=== PATIENT | male | born 1990 | race Caucasian/White ===

== ENCOUNTER 2021-11-16 13:36 | Outpatient (CLI) | payer OTHER ==
[2021-11-16 14:29] VITALS: BP 128/70
--- NOTE | 2021-11-16 14:29 | SLEEP CARE CONSULTATION ---
Information from patient questionnaire entered by Sheri Kothari MA. I have reviewed and concur with the information entered by Sheri Kothari MA. This document represents the service I personally performed and the decisions made by , Elisa Jeffries ARNP. History of Present Illness Service Date and Time: 11/16/2021 1336 Reason for Visit: New patient (ONSET 08/2018, NO PRIORS,) Chief Complaint: reports: Unrefreshed sleep, Snoring, Excessive daytime sleepin ess, Fatigue, Other Date of Onset: YEARS Usual bedtime: 930 PM Time it takes to fall asleep: 10 MINUTES Snores at night: Yes Observed to quit breathing while asleep: No Sleeps alone due to snoring: No Number of times waking at night: 0 Reasons for waking at night: reports: Bathroom. denies: Choking, Snoring, Gasping for air Toss, Turn, or Twitch while sleeping: No Recalls having dreams: No Usually gets out of bed at: 0520 Feels refreshed in the morning: No Morning headache: Yes (only recently) Sleepy or fatigued during the day: Yes Ever fallen asleep while driving: Yes (drowsy driving, no accidents) Takes day naps: No Dreams during day naps: No Prior sleep studies: No Additional HPI information: I had the pleasure of seeing CHRISTIN SEO today regarding the possibility of him having a sleep disorder. His current complaints are excessive daytimes sleepiness, fatigue, snoring and unrefreshed sleep. He states he is always tired and he can't remember the last night of good sleep he's had. He has a smartwatch that tells him his oxygen level goes down under 90% while asleep. He states he has narrow nasal passages and uses Breathe Right strips at night to reduce snoring. The patient tells me that he normally goes to bed around 9:30 pm, and it takes him approximately just a few minutes to fall asleep. He has been told that he snores loudly and irregularly at night. He has not been observed to stop breathing in his sleep. His bed partner can still sleep in the same bed most nights as long as she falls asleep first. He has not awakened for his own snoring, choking, and having to gasp for air. There is not a lot of tossing and turning in his sleep. Generally there is no recollection of dreams. He usually wakes up at 0530 and does not feel refreshed. He usually does not have a morning headache. During the day he complains of feeling sleepy and fatigued. He has fallen asleep while driving and has gone out of the kaur, no accident. He usually does not take naps during the day. There is no somniloquy (sleep talking) or somnambulism (sleep walking). He has never experienced sleep paralysis, cataplexy, or symptoms of restless leg syndrome. He reports having impaired concentration and memory during the day. He has had several head injuries in the past. - Parasomnia Symptoms Ever been unable to move upon waking from sleep: No Walks in sleep: No Talks in sleep: No Ever acted out dreams in sleep: No Ever felt weak in the knees when startled or emotional: No Bothered by creepy, crawly, restless sensations in legs: No Problems with memory or concentration: Yes Subjective Initial [place] Sleepiness Scale score: 17 (2021) Social History The patient's occupation is a [employer]. Patient is and lives in [place]. Have you smoked in the past 12 months: No Alcohol use: No Caffeine use: Yes Caffeine amount and frequency: 2 X DAILY Family History Family history of sleep disordered breathing: Yes Family Hx Sleep Apnea: Father: Snoring, Sleep apnea - Treated Allergies and Home Medications Known drug allergies: No Drug allergies reviewed: Yes (NKDA) Home medication list reviewed: Yes Allergy and home medication list: Terri Hirsch Review of Systems Cardiovascular: reports: palpitations Neurological: reports: head trauma Ear/Nose/Throat: reports: wisdom teeth removed. denies: tonsillectomy Immunologic: reports: sneezing, allergies to food or environment (seasonal) Physical Exam Vital signs obtained and entered by: ROSEMARIE BAER Blood Pressure: 128/70 (RIGHT, PULSE 93, RESP 16, ) Heart Rate: 82 O2 Saturation: 97 (WITH CLOTH MASK) Height: 6 ft 2 in Weight: 240 lb Body Mass Index: 30.8 BMI Classification: Obese Neck circumference: 15.5 (inches) Mouth and throat: normal Soft palate: long Hard palate: normal Uvula: normal Uvula visualization: 50% Mallampati Class II Tongue: enlarged in size with teeth ponce on lateral edges Tonsils: 1+ Heart: regular rate and rhythm Lungs: clear bilaterally Impression and Plan 1. Suspected Obstructive Sleep Apnea-Hypopnea Syndrome, as suggested by a history of loud and irregular snoring, unrefreshed sleep, cognitive impairment, and excessive daytime sleepiness. Narrow oropharynx and obesity are common predisposing factors for obstructive sleep apnea-hypopnea syndrome. I recommend proceeding to polysomnography to confirm the diagnosis and to assess severity. If the patient has significant sleep disordered breathing, a manual CPAP titration study will also be performed to find the optimal treatment pressure. I informed the patient of what the sleep studies involve and after some d iscussion, obtained agreement to proceed. The pathophysiology of obstructive sleep apnea-hypopnea syndrome was discussed with the patient and health risks of cardiovascular and cerebrovascular disease if not treated. Risks of drowsy driving discussed in detail and patient advised to avoid long distance driving and to sample puller at the first sign of drowsiness. Patient agreed to plan. * Schedule polysomnography * Avoid long distance driving or driving when feeling sleepy. * Avoid alcohol, sedative and muscle relaxant around bedtime. * Attempt to lose weight. * Review instructions provided by trained office staff on how to prepare for the sleep study. * Return for follow-up after sleep study completed. Counseling Topics: Weight loss health impact Visit Type: In Office Time Spent with Patient (minutes): 30 Provider Statement: I spent 100% of the Face to Face Visit with the patient with greater than 50% spent counseling the patient and coordination of care.
== END 2021-11-16 13:37 | disposition home or self-care (01) ==
LOC: SC 13:36
PROVIDERS: ATTEND Nurse Practitioner Family
DX: R06.83 Snoring (principal); E66.9 Obesity, unspecified; Z68.30 Body mass index [BMI] 30.0-30.9, adult; G47.10 Hypersomnia, unspecified; R41.89 Other symptoms and signs involving cognitive functions and awareness
CPT/HCPCS: 99203; 99212

== ENCOUNTER 2021-11-27 12:28 | Outpatient (CLI) | payer OTHER | END 2021-11-27 12:29 | disposition home or self-care (01) | LOC: SC 12:28 | PROVIDERS: ATTEND Nurse Practitioner Family | DX: R09.02 Hypoxemia (principal); R00.0 Tachycardia, unspecified; G47.10 Hypersomnia, unspecified; R53.83 Other fatigue; R06.83 Snoring; G47.8 Other sleep disorders | CPT/HCPCS: 95806 ==

== ENCOUNTER 2021-12-12 14:21 | Outpatient (CLI) | payer OTHER ==
--- NOTE | 2021-12-12 15:09 | SLEEP CARE CONSULTATION ---
Information from patient questionnaire entered by Sheri Kothari MA. I have reviewed and concur with the information entered by Sheri Kothari MA. This document represents the service I personally performed and the decisions made by , Elisa Jeffries ARNP. History of Present Illness Service Date and Time: 12/12/2021 1421 Initial [place] Sleepiness Scale score: 17 (2021) Current [place] Sleepiness Scale score: 20 Additional HPI information: CHRISTIN SEO returns for follow up and results of the recently performed home sleep study. The patient was informed of the following findings: No significant sleep disordered breathing with an average AHI of 2.9 and evan oxygen saturation of 82%. Patient noted to have tachycardia with a maximum recorded heart rate of 130 bpm. I explained the pathophysiology behind obstructive sleep apnea. Patient does not have sleep apnea and was advised how weight gain could increase the risk of developing sleep apnea in the future. I strongly encouraged the patient to lose weight. Patient also advised that he could use commercially available positional belts to avoid supine sleep to reduce apneas he is having. His sleep study was fair quality and he may repeat the study to try to obtain a good quality study. Patient has moderate snoring. Snoring can be reduced by weight loss. Weight loss is best achieved with diet consult. Patient instructed to contact PCP for referral. Snoring can also be treated with an oral appliance from a dentist. Advised to check insurance coverage. In addition, an ENT evaluation can be do to see if other treatment is indicated. Patient counseled not drink alcohol less than 4 hours before bedtime as it can increase snoring and apnea. Patient was cautioned about risks of drowsy driving until sleepiness symptoms resolve. Sleep Study - Results Type of Sleep Study: Home sleep study (F/U HOME STUDY) Prior sleep studies: No Polysomnography/Home Sleep Study results: Physician Impression: The quality of the study is fair due to partial loss of pulse oximetry signal. The length of the study is adequate (> 240 minutes). Please also see the tabulated and graphic data. 1. No significant sleep disordered breathing, with an AHI of 2.9/hr and evan SaO2 of 82%. During the study, the patient had 7 apneas (7 obstructive, 0 central, 0 mixed) and 10 hypopneas. The longest episode lasted 85.0 seconds. The few respiratory events occurred more frequently during supine sleep (supine AHI was 4.3 and non-supine, 0.00). 2. Hypoxemia (ICD-10 R09.02), mild, with the lowest oxygen saturation of 82 % and 26.7 minutes with SaO2 under 90%. Baseline oxygen saturation was normal (Average oxygen saturation was 93%). 3. Tachycardia, with maximum recorded heart rate of 130 beats per minute. Allergies and Home Medications Home medication list reviewed: Yes (no changes) Review of Systems Review of systems same as previous: Yes (no changes) Physical Exam Vital signs obtained and entered by: ROSEMARIE BAER Blood Pressure: 127/77 Cuff size: wrist Heart Rate: 95 O2 Saturation: 97 (cloth mask) Height: 6 ft 2 in Weight: 240 lb Body Mass Index: 30.8 BMI Classification: Obese Impression and Plan 1. Snoring but no significant sleep disordered breathing. Patient advised that often weight loss will reduce snoring as well as apnea risk. An oral appliance can also be used for snoring. This would require a dental consultation. Patient cautioned not to use other online appliances as can cause bite issues. A list of accredited dentists in [facility] and one local dentist who makes oral appliances is available in office. Patient is advised to check if insurance will cover. An ENT consult can also be helpful to determine if any other treatment is an option. 2. Hypoxemia, mild, with the lowest oxygen saturation of 82 % and 26.7 minutes with SaO2 under 90%. His baseline oxygen saturation was normal with an average oxygen saturation of 93%. 3. Tachycardia, unspecified, with a maximum recorded heart rate of 130 beats per minute during the HST. Patient was advised to follow up with his PCP for the elevated heart rate as cardiac monitoring may be warranted. He voiced understanding. * Attempt to lose weight * Avoid alcohol consumption near bedtime * The patient is cautioned about driving until sleepiness is completely re solved. * Return as needed for follow up. Counseling Topics: Weight loss health impact Follow up with: PCP Visit Type: In Office Time Spent with Patient (minutes): 20 Provider Statement: I spent 100% of the Face to Face Visit with the patient with greater than 50% spent counseling the patient and coordination of care.
[2021-12-12 15:10] VITALS: BP 127/77
== END 2021-12-12 14:22 | disposition home or self-care (01) ==
LOC: SC 14:21
PROVIDERS: ATTEND Nurse Practitioner Family
DX: R06.83 Snoring (principal); R09.02 Hypoxemia; R00.0 Tachycardia, unspecified; E66.9 Obesity, unspecified; Z68.30 Body mass index [BMI] 30.0-30.9, adult
CPT/HCPCS: 99212; 99213